=== PATIENT | male | born 1940 | race Caucasian/White ===

== ENCOUNTER 2020-08-12 08:31 | Outpatient (CLI) | payer OTHER | END 2020-08-12 08:40 | disposition home or self-care (01) | LOC: RX STUDY 08:31 | PROVIDERS: ATTEND Internal Medicine Gastroenterology | DX: R10.13 Epigastric pain (principal) ==

== ENCOUNTER 2022-10-11 07:58 | Outpatient (CLI) | payer OTHER | END 2022-10-11 08:04 | disposition home or self-care (01) | LOC: RX STUDY 07:58 | PROVIDERS: ATTEND Internal Medicine Gastroenterology | DX: K29.00 Acute gastritis without bleeding (principal); R10.13 Epigastric pain; K21.9 Gastro-esophageal reflux disease without esophagitis ==